=== PATIENT | female | born 1950 | race Caucasian/White ===

== ENCOUNTER 2016-11-28 10:31 | Emergency (ER) | payer OTHER ==
--- NOTE | ~2016-11-28 | CR72 ---
[facility] A Service of [facility] & [facility] RADIOLOGY TEXT RESULTS PATIENT: SHARLENE HUNTER LOCATION: [facility] : 48 UNIT #: [id number] AGE: [address]: Aman Lindsey MD SEX: F ORDER DR: [id number] [place] [id number] E MR#: [id number] Acc #: [id number] NAME: SHARLENE HUNTER. : 1950 SEX: F STUDY DATE/TIME: 11/28/2016 11:16 UNIT: SED ROOM: STUDY DESCRIPTION: CR Chest Single View Portable Attending Physician: Deandra Shah M.D. Referring Physician: Deandra Shah M.D. Ordering Physician: Deandra Shah M.D. MEDICAL IMAGING REPORT This report is preliminary unless electronic signature is present. EXAM Portable chest 11/28/2016 1116 hours CLINICAL HISTORY 2-day history of cough, shortness of air, and congestion. No response to oral steroids received from primary care provider 2 days ago. COMPARISON 07/17/2016 FINDINGS Portable upright chest demonstrates the patient to be significantly rotated to the right. Allowing for this, the heart size and mediastinal contours are stable. The lungs are clear. There is no effusion. IMPRESSION Technically limited film as the patient is significantly rotated to the right. No definite acute cardiopulmonary findings. Dictated by... Criselda Iniguez M.D. THIS IS AN ELECTRONICALLY VERIFIED REPORT Criselda Ingiuez M.D. at 12/01/2016 9:29 AM KAYLYN/rose TD: 11/28/2016 12:50 JOB #: [id number] MEDICAL IMAGING REPORT Page 1 of 1
[~2016-11-28 10:31] MED LIST: ALBUTEROL17 GM; ALLEGRA PO; ASPIR-TRIN325 MG PO; BREO ELLIPTA 11 EACH; DIAZEPAM PO; DOXYCYCLINE; GLYNASE; IBUPROFEN800 MG PO; LIORESAL10 MG PO; METOPROLOL SUCC50 MG PO; PREDNISONE5 MG PO; PREVACID30 MG/BOTT PO; SYNTHROID0.1 MG PO; [UNRECOGNIZED DRUG - OTHER]
[2016-11-28 10:42] LABS: MEAN PLATELET VOLUME 7.3 FL (6.5-11.5); WHITE BLOOD COUNT 10.3 X10e3 (4.0-10.5)
[2016-11-28 10:48] LABS: BASOPHIL% 0.5 % (0-2.5); DIFF IND NO; HEMOGLOBIN 15.3 gm/dL (12.0-16.0); LYMPHOCYTE# 0.5 X10e3 (1.0-3.5); LYMPHOCYTE% 4.9 % (17.0-45.0); MEAN CORPUSCULAR HEMOGLOBIN 30.4 PG (28-34); MEAN CORPUSCULAR HGB CONC 33.4 g/dL (30-36); MONOCYTE# 0.4 X10e3 (0-1.0); MONOCYTE% 3.7 % (3.0-12.0); NEUTROPHIL# 9.4 X10e3 (1.5-7.1); NEUTROPHIL% 90.9 % (40-75); PLATELET COUNT 242 X10e3 (140-420); RED BLOOD COUNT 5.05 X10e (3.90-5.30); RED CELL DISTRIBUTION WIDTH 13.7 % (11.0-15.5)
[2016-11-28 11:02] LABS: ALBUMIN SERUM 3.9 g/dL (3.5-5.0); BILIRUBIN, DIRECT 0.2 mg/dL (0.0-0.2); BILIRUBIN,INDIRECT 0.3 mg/dL (0.0-0.9); BILIRUBIN,TOTAL 0.5 mg/dL (0.2-2.0); CALCIUM SERUM 8.7 mg/dL (8.4-10.2); CREATININE SERUM 0.5 mg/dL (0.6-1.4); GLOM FILT RATE Estimated 100.2 mL/min (>60); POTASSIUM 4.7 mmol/L (3.5-5.1)
[2016-11-28 11:37] LABS: INFLUENZA A NEG (NEG); INFLUENZA B NEG (NEG)
== END 2016-11-28 16:17 | disposition short-term general hospital (02) ==
LOC: SED 10:31
PROVIDERS: Emergency Medicine
DX: Z53.21 Procedure and treatment not carried out due to patient leaving prior to being seen by health care provider (principal)
CPT/HCPCS: 71010; 80048; 80076; 83605; 85025; 87804; J2930; J3475